=== PATIENT | female | born 1945 | race Caucasian/White ===

== ENCOUNTER → 2018-04-16 09:42 | Outpatient (CLI) | payer MEDICARE, OTHER, SELFPAY ==
[2018-04-16 10:31] LABS: Add Manual Diff / Slide Review NO; Basophils Percent Auto 0.2 % (0-2); Eosinophils Percent Auto 1.4 % (2-4); Hematocrit 41.3 % (36-46); Hemoglobin 14.3 g/dL (12.0-16.0); Lymphocytes Percent Auto 28.7 % (25-40); Mean Corpuscular HGB Conc 34.7 % (30-36); Mean Corpuscular Hemoglobin 31.8 PG (26-34); Mean Corpuscular Volume 91.6 fL (80-100); Monocytes Percent Auto 7.9 % (3-14); Neutrophils Absolute Auto 3400 /uL (3000-5900); Neutrophils Percent Auto 61.8 % (50-75); Platelet Count 216 X10^3/uL (150-400); Red Blood Cell Count 4.51 X10^6/uL (4.0-5.2); Red Cell Distribution Width 13.6 % (11.6-14.8); White Blood Cell Count 5.6 X10^3/uL (4.5-11.0)
[2018-04-16 10:50] LABS: Alanine Aminotransferase 34 IU/L (9-52); Albumin 4.6 g/dL (3.5-5.0); Albumin Globulin Ratio 1.6 (1.0-2.8); Alkaline Phosphatase 81 U/L (38-126); Aspartate Aminotransferase 30 IU/L (14-36); Bilirubin Total 0.7 mg/dL (0.2-1.3); Blood Urea Nitrogen 14 mg/dL (7-17); Calcium 10.4 mg/dL (8.4-10.2); Carbon Dioxide 33 mmol/L (22-32); Chloride 98 mmol/L (98-107); Estimated Glomerular Filt Rate > 60.0 mL/min (>60); Globulin 2.9 g/dL (1.7-4.1); Glucose 114 mg/dL (80-110); HEMOLYSIS < 15 (0-50); Potassium 4.9 mmol/L (3.4-5.1); Sodium 141 mmol/L (137-145); Total Protein 7.5 g/dL (6.3-8.2)
== END ==
PROVIDERS: PCP Family Medicine; Visit Provider Internal Medicine
DX: C50.911 Malignant neoplasm of unspecified site of right female breast (principal); Z79.811 Long term (current) use of aromatase inhibitors
CPT/HCPCS: 36415; 80053; 85025

== ENCOUNTER → 2018-10-12 10:38 | Outpatient (CLI) | payer MEDICARE, OTHER, SELFPAY ==
[2018-10-12 11:52] LABS: Add Manual Diff / Slide Review NO; Basophils Absolute Auto 0 /uL (0-100); Basophils Percent Auto 0.1 % (0-2); Eosinophils Absolute Auto 200 /uL (0-450); Hematocrit 41.2 % (36-46); Hemoglobin 13.9 g/dL (12.0-16.0); Lymphocytes Absolute Auto 1800 /uL (1100-4500); Lymphocytes Percent Auto 34.1 % (25-40); Mean Corpuscular HGB Conc 33.8 % (30-36); Mean Corpuscular Hemoglobin 31.4 PG (26-34); Mean Corpuscular Volume 92.8 fL (80-100); Monocytes Absolute Auto 400 /uL (0-900); Monocytes Percent Auto 7.8 % (3-14); Neutrophils Absolute Auto 3000 /uL (1500-7000); Platelet Count 217 X10^3/uL (150-400); Red Blood Cell Count 4.44 X10^6/uL (4.0-5.2); Red Cell Distribution Width 13.4 % (11.6-14.8); White Blood Cell Count 5.4 X10^3/uL (4.5-11.0)
[2018-10-12 12:35] LABS: Alanine Aminotransferase 40 IU/L (9-52); Albumin 4.7 g/dL (3.5-5.0); Albumin Globulin Ratio 1.4 (1.0-2.8); Alkaline Phosphatase 86 U/L (38-126); Aspartate Aminotransferase 35 IU/L (14-36); BUN Creatinine Ratio 18.6 (6-22); Bilirubin Total 0.6 mg/dL (0.2-1.3); Blood Urea Nitrogen 13 mg/dL (7-17); Calcium 9.9 mg/dL (8.4-10.2); Carbon Dioxide 30 mmol/L (22-32); Chloride 99 mmol/L (98-107); Estimated Glomerular Filt Rate > 60.0 mL/min (>60); Globulin 3.4 g/dL (1.7-4.1); Glucose 124 mg/dL (80-110); HEMOLYSIS < 15 (0-50); Potassium 3.9 mmol/L (3.4-5.1); Sodium 139 mmol/L (137-145); Total Protein 8.1 g/dL (6.3-8.2)
== END ==
PROVIDERS: Family Provider Family Medicine; PCP Family Medicine; Visit Provider Internal Medicine
DX: C50.911 Malignant neoplasm of unspecified site of right female breast (principal); Z79.811 Long term (current) use of aromatase inhibitors
CPT/HCPCS: 36415; 80053; 85025

== ENCOUNTER → 2019-03-08 13:48 | Outpatient (CLI) | payer MEDICARE, OTHER, SELFPAY ==
--- NOTE | 2019-03-08 | DI.RAD.S_ITS ---
PROCEDURE: XR CHEST 2V INDICATIONS: ACUTE BRONCHITIS TECHNIQUE: 2 views of the chest were acquired. COMPARISON: None. FINDINGS: Surgical changes and devices: None. Lungs and pleura: Lungs are clear. No pleural effusions or pneumothorax. Mediastinum: Mediastinal contours are normal. Heart size is normal. Bones and chest wall: No suspicious bony abnormalities. Soft tissues appear unremarkable. IMPRESSION: No active cardiopulmonary disease. Dictated by: Stephanie Sierra M.D. on 03/08/2019 at 15:19 Approved by: Stephanie Sierra M.D. on 03/08/2019 at 15:20
== END ==
PROVIDERS: PCP Family Medicine; Visit Provider Family Medicine
DX: J02.9 Acute pharyngitis, unspecified (principal)
CPT/HCPCS: 71046

== ENCOUNTER → 2019-04-25 10:40 | Outpatient (CLI) | payer MEDICARE, OTHER, SELFPAY ==
[2019-04-25 12:23] LABS: Add Manual Diff / Slide Review NO; Basophils Absolute Auto 0 /uL (0-100); Basophils Percent Auto 0.2 % (0-2); Eosinophils Absolute Auto 100 /uL (0-450); Eosinophils Percent Auto 1.7 % (2-4); Hematocrit 37.9 % (36-46); Lymphocytes Absolute Auto 1600 /uL (1100-4500); Lymphocytes Percent Auto 28.9 % (25-40); Mean Corpuscular HGB Conc 34.2 % (30-36); Mean Corpuscular Volume 93.5 fL (80-100); Monocytes Absolute Auto 500 /uL (0-900); Neutrophils Absolute Auto 3500 /uL (1500-7000); Neutrophils Percent Auto 61.2 % (50-75); Platelet Count 212 X10^3/uL (150-400); Red Blood Cell Count 4.06 X10^6/uL (4.0-5.2); Red Cell Distribution Width 15.2 % (11.6-14.8); White Blood Cell Count 5.7 X10^3/uL (4.5-11.0)
[2019-04-25 12:34] LABS: Alanine Aminotransferase 22 IU/L (9-52); Albumin 4.3 g/dL (3.5-5.0); Albumin Globulin Ratio 1.3 (1.0-2.8); Alkaline Phosphatase 85 U/L (38-126); Aspartate Aminotransferase 25 IU/L (14-36); BUN Creatinine Ratio 24.3 (6-22); Bilirubin Total 0.6 mg/dL (0.2-1.3); Blood Urea Nitrogen 17 mg/dL (7-17); Calcium 9.4 mg/dL (8.4-10.2); Carbon Dioxide 30 mmol/L (22-32); Chloride 100 mmol/L (98-107); Cholesterol 258 mg/dL (140-199); Estimated Glomerular Filt Rate > 60.0 mL/min (>60); Globulin 3.3 g/dL (1.7-4.1); Glucose 104 mg/dL (80-110); HDL Cholesterol 60 mg/dL (40-60); HEMOLYSIS 19 (0-50); LDL Cholesterol Calculated 166 mg/dL (<100); Potassium 4.1 mmol/L (3.4-5.1); Sodium 139 mmol/L (137-145); Total Protein 7.6 g/dL (6.3-8.2); Triglycerides 160 mg/dL (35-150)
== END ==
PROVIDERS: Family Provider Internal Medicine Hematology & Oncology; PCP Family Medicine; Visit Provider Family Medicine
DX: E78.5 Hyperlipidemia, unspecified (principal); I10 Essential (primary) hypertension; E78.70 Disorder of bile acid and cholesterol metabolism, unspecified; E11.65 Type 2 diabetes mellitus with hyperglycemia; E66.9 Obesity, unspecified; C50.911 Malignant neoplasm of unspecified site of right female breast; Z79.899 Other long term (current) drug therapy; Z79.811 Long term (current) use of aromatase inhibitors
CPT/HCPCS: 36415; 80053; 80061; 85025

== ENCOUNTER → 2021-03-04 07:53 | Outpatient (CLI) | payer MEDICARE, OTHER, SELFPAY ==
--- NOTE | 2021-03-04 | DI.ECHO.S_ITS ---
[facility]+ [facility] +---------+ : : [address] : : [place] : : : : [id number] : : : : Phone: [phone]+ Echocardiogram Report + + :Name: HUMA LESLIE Study Date: 03/04/2021 Height: 66 in : :[facility] ReadingLocation: Weight: 260 lb : : Gender: Female BSA: 2.2 m2 : :: 1945 Age: 75 yrs BP: 180/68 mmHg: :Reason For Study: SHORTNESS OF BREATH : :Ordering Physician: GODWIN, : :MIRIAM Performed By: Herminia Kaur : :Referring: MIRIAM CONNELLY L : + + Interpretation Summary Left ventricular systolic function is normal with an estimated ejection fraction of 60 to 65% without any focal wall motion abnormality. Diastolic function is likely normal with normal filling pressures. The right ventricle is borderline enlarged with normal systolic function. Right ventricular systolic pressure is mildly elevated at 31 mmHg with a CVP of 3 mmHg. There is no significant functional valvular abnormality. The ascending aorta is mildly enlarged. The patient was in sinus rhythm throughout the majority of the study although had 2 brief runs of atrial tachycardia at 125 to 135 bpm during the study. Procedure: A two-dimensional transthoracic echocardiogram with color flow and Doppler was performed. The study quality was technically adequate. There is no prior echocardiogram noted for this patient. The heart rate ranged between 75-126 bpm during the study. Left Ventricle: The left ventricle appears normal in size, wall thickness, and systolic function without any focal wall motion abnormalities. The ejection fraction is estimated to be 55-60%. Diastolic parameters suggest probable normal left ventricular diastolic function and normal filling pressures. Right Ventricle: The right ventricle is at the upper limits of normal in size. The right ventricular systolic function is normal. Atria: Both atria are normal in size. There is no Doppler evidence for an interatrial shunt. Mitral Valve: There is mild mitral annular calcification. The mitral valve leaflets appear normal. There is no evidence of stenosis, fluttering, or prolapse. There is trace mitral regurgitation. Aortic Valve: The aortic valve is slightly calcified. The aortic valve opens well. There is no aortic valve stenosis. No aortic regurgitation is present. Tricuspid Valve: The tricuspid valve is normal in structure and function. There is trace tricuspid regurgitation. The right ventricular systolic pressure is estimated to be at least 31 mmHg based on an estimated right atrial pressure of 3 mm Hg. Pulmonic Valve: The pulmonic valve leaflets are thin and pliable; valve motion is normal. There is trace pulmonic regurgitation. Great Vessels: The aortic root is normal size. The ascending aorta is mildly enlarged. The IVC is of normal diameter and collapses greater than 50% with a sniff. This suggests a low right atrial pressure of 3 mm Hg. Pericardium/ Pleura There is no pericardial effusion. There is no pleural effusion. MMode/2D Measurements & Calculations LVIDd: 5.4 cm LVOT diam: 2.2 cm LVIDs: 3.5 cm Ao root diam: 3.0 cm FS: 35.1 % asc Aorta Diam: 3.6 cm IVSd: 1.00 cm Ao Arch Diam (Prox Trans): 2.2 cm LVPWd: 0.90 cm LV merida. diameter/BSA (cm/m^2): 2.4 LV sys. diameter/BSA (cm/m^2): 1.6 LA A2 area: 14.4 cm2 RA long axis: 5.0 cm LA A4 area: 16.9 cm2 RA area: 14.7 cm2 LA length (vol): 5.6 cm RA vol: 36.5 ml LA vol: 36.6 ml RA : 16.3 ml/m2 LA vol index: 16.4 ml/m2 IVC diam: 1.1 cm RVD1 (basal): 4.2 cm TAPSE: 2.0 cm Doppler Measurements & Calculations Ao V2 max: 146.8 cm/sec LVOT Max Kenny: 70.9 cm/sec Ao V2 mean: 108.9 cm/sec LV V1 max P.0 mmHg Ao max P.6 mmHg LV V1 VTI: 15.7 cm Ao mean P.1 mmHg DAVI(I,D): 2.1 cm2 Ao V2 VTI: 28.2 cm DAVI(V,D): 1.8 cm2 sev ratio: 0.56 DAVI indexed to BSA (cm^2/m^2): 0.92 MV E max kenny: 137.7 cm/sec TR max kenny: 266.3 cm/sec MV A max kenny: 2.5 cm/sec TR max P.4 mmHg MV E/A: 55.9 PA V2 max: 105.5 cm/sec Med Peak E' Kenny: 13.9 cm/sec PA V2 mean: 68.3 cm/sec E/E' med: 9.9 PA mean P.1 mmHg Lat Peak E' Kenny: 12.6 cm/sec PA pr(Accel): 37.9 mmHg E/E' lat: 10.9 E/e' average: 10.4 MV dec time: 0.15 sec SV(LVOT): 57.8 ml Reading Physician:12:13 PM
--- NOTE | 2021-03-04 | DI.RAD.S_ITS ---
PROCEDURE: XR CHEST 2V INDICATIONS: SHORTNESS OF BREATH TECHNIQUE: 2 views of the chest were acquired. COMPARISON: [facility], [facility], XR CHEST 2V, 03/08/2019, 13:53. [facility], [facility], CHEST 1 VIEW, 12/24/2011, 16:49. FINDINGS: Surgical changes and devices: None. Lungs and pleura: Lungs are mildly abnormal, with a mild chronic interstitial prominence which may reflect prior smoking history. No pleural effusions or pneumothorax. Note is again made of a relatively prominent right pericardiophrenic fat pad, present also in 2019 Mediastinum: Mediastinal contours are normal. Heart size is normal. Bones and chest wall: No suspicious bony abnormalities. Soft tissues appear unremarkable. IMPRESSION: Chronic mild interstitial prominence, no definite acute source of shortness of breath is found. Dictated by: Hollis Terrell M.D. on 03/04/2021 at 9:56 Approved by: Hollis Terrell M.D. on 03/04/2021 at 9:57
== END ==
PROVIDERS: Family Provider Internal Medicine Hematology & Oncology; PCP Family Medicine; Referring Provider Family Medicine; Visit Provider Family Medicine
DX: R06.02 Shortness of breath (principal); I77.89 Other specified disorders of arteries and arterioles
CPT/HCPCS: 71046; 93306

== ENCOUNTER → 2021-04-12 08:41 | Outpatient (CLI) | payer MEDICARE, OTHER, SELFPAY ==
[2021-04-12 10:01] LABS: COVID19 -Nasal RAPID Negative (Negative)
== END ==
PROVIDERS: Family Provider Internal Medicine Hematology & Oncology; PCP Family Medicine; Referring Provider Family Medicine; Visit Provider Family Medicine
DX: Z20.822 Contact with and (suspected) exposure to COVID-19 (principal)
CPT/HCPCS: 87635; C9803

== ENCOUNTER → 2021-04-12 11:06 | Outpatient (CLI) | payer MEDICARE, OTHER, SELFPAY ==
--- NOTE | 2021-04-17 09:09 | PM.PFT.1 ---
Pulmonary Function Test Referral & Results Date Patient Seen: 04/12/21 Requesting provider: César Samano Results: The spirometry demonstrates an FVC of 2.01 L which is 67% of predicted. The FEV1 was measured at 1.54 L which is 60% of predicted. The FEV1/FVC ratio was 76 which is 101% of predicted. Following the administration of bronchodilator there was a 13% improvement in FEV1 and a 70% improvement in FEF 25-75%. Lung volumes show an SVC of 2.33 L which is 79% of predicted. The diffusing capacity was measured at 24.69 which is 91% of predicted. The maximum voluntary ventilation was reduced Interpretation: This study demonstrates perhaps mild obstructive lung disease based on reduction FEV1 although FEV1/FVC ratio is preserved. This is supported by the minimal improvement post bronchodilator particularly small airway flow as above based on change in FEF 25-75%. There may also be a minimal reduction in lung volumes suggesting mild restrictive lung disease which may well account for reduction FEV1 as above. There is a more significant reduction in maximum voluntary ventilation than would be expected given abnormalities in spirometry thus suggesting the possibility of neuromuscular disease as well Clinical correlation suggested
== END ==
PROVIDERS: Family Provider Internal Medicine Hematology & Oncology; PCP Family Medicine; Referring Provider Family Medicine; Visit Provider Family Medicine
DX: R06.03 Acute respiratory distress (principal); J98.8 Other specified respiratory disorders; R06.02 Shortness of breath; Z20.822 Contact with and (suspected) exposure to COVID-19
CPT/HCPCS: 87635; 94060; 94726; 94729; C9803

== ENCOUNTER → 2023-11-17 09:56 | Outpatient (CLI) | payer MEDICARE, OTHER, SELFPAY ==
--- NOTE | 2023-11-17 09:59 | DI.CT.S_ITS ---
PROCEDURE: CT ABDOMEN PELVIS W CON INDICATIONS: Unspecified abdominal pain TECHNIQUE: After the administration of intravenous contrast, axial sections acquired from the lung bases to the pubic symphysis. Coronal and sagittal reformats were performed. For radiation dose reduction, the following was used: automated exposure control, adjustment of mA and/or kV according to patient size. COMPARISON: None. FINDINGS: Image quality: Diagnostic. Lower Chest: The lung bases are clear. The heart is mildly enlarged . No pericardial effusion. ABDOMEN: Liver: No solid mass. Gallbladder: The gallbladder is not visualized. There appears to be a portion of the transverse colon herniated into the gallbladder fossa. This portion of the colon appears thick-walled and partially filled with gas and partially filled with oral contrast (series 2/image 32 and series 5/images 35-37). Biliary ducts: No intra or extrahepatic biliary ductal dilatation. The common bile duct demonstrates normal course and caliber. Pancreas: No ductal dilation. Spleen: Size is within normal limits. Adrenal Glands: No adrenal nodules. Kidneys and Ureters: No hydronephrosis. No solid mass. No complex renal cystic lesion which requires follow up. Stomach and Bowel: Normal colonic caliber, without significant wall thickening. The appendix is thin walled and gas filled. Questionable colonic diverticulum within the gallbladder fossa as above. There are multiple diverticular outpouchings throughout the sigmoid colon. Circumferential wall thickening and pericolonic fat stranding is present within the mid and distal sigmoid colon. There is trace free left hemipelvic fluid as well (series 2/image 68). Peritoneum: No pneumoperitoneum. Ventral Wall: No significant ventral hernia. Abdominal Nodes: No retroperitoneal or mesenteric adenopathy by size criteria. Vessels: Aorta and inferior vena cava are normal in size. There are scattered atheromatous calcifications throughout the aorta and iliac arteries bilaterally. PELVIS: Pelvic Organs: Unremarkable. Bladder: No bladder wall thickening, accounting for underdistention. Pelvic Nodes: No enlarged lymph nodes. Miscellaneous: No inguinal hernias are seen. Bones: No aggressive osseous abnormality. IMPRESSION: 1. Diverticulosis and mucosal thickening, pericolonic fat stranding and trace pelvic free fluid suspicious for acute non perforated diverticulitis. 2. Questionable diverticular outpouching of the transverse colon into the gallbladder fossa. However, there is no evidence for prior cholecystectomy. Findings could also represent a fistulous communication between an inflamed gallbladder and the adjacent transverse colon in the setting of prior perforated acute cholecystitis. Please correlate with surgical history of prior cholecystectomy. No pericholecystic fluid or gas visualized at this time. These findings were discussed with Opal Parra CMA in Dr. Samano's office at 12:46 p.m. November 17, 2023. She understands the urgent nature of these results. Dictated by: Stephanie Rosas M.D. on 11/17/2023 at 12:33 Approved by: Stephanie Rosas M.D. on 11/17/2023 at 12:51
== END ==
PROVIDERS: Family Provider Internal Medicine Hematology & Oncology; PCP Family Medicine; Referring Provider Family Medicine; Visit Provider Family Medicine
DX: K57.30 Diverticulosis of large intestine without perforation or abscess without bleeding (principal); R10.9 Unspecified abdominal pain
CPT/HCPCS: 74177; Q9967